=== PATIENT | female | born 1990 | race Caucasian/White ===

== ENCOUNTER 2016-10-05 18:49 | Emergency (ER) | payer OTHER, BC ==
[~2016-10-05 18:49] MED LIST: LEVOTHYROXIN0.088 MG PO; OMEPRAZOLE40 MG PO
[2016-10-05] MEDS ORDERED: NORCO 325 MG-51 TAB PO (19:06)
== END 2016-10-05 19:18 | disposition home or self-care (01) ==
LOC: ED 18:49
DX: S70.02XA Contusion of left hip, initial encounter (principal); M54.9 Dorsalgia, unspecified; V43.52XA Car driver injured in collision with other type car in traffic accident, initial encounter

== ENCOUNTER → 2016-12-05 | Outpatient (CLI) | payer BC ==
[2016-10-05 19:20] VITALS: BP 103/75
[~2016-12-05] MED LIST changes: +NORCO 325 MG-51 TAB PO
== END ==
LOC: RAD 08:16
DX: M54.16 Radiculopathy, lumbar region (principal); M54.6 Pain in thoracic spine; M51.24 Other intervertebral disc displacement, thoracic region

== ENCOUNTER 2017-01-15 10:30 | Outpatient (RCR) | payer BC ==
[2016-10-05 19:20] VITALS: BP 103/75
== END 2017-01-15 12:00 | disposition home or self-care (01) ==
LOC: PT 10:30
DX: M54.16 Radiculopathy, lumbar region (principal); M54.6 Pain in thoracic spine

== ENCOUNTER → 2018-01-13 | Outpatient (CLI) | payer BC ==
[2016-10-05 19:20] VITALS: BP 103/75
[2018-01-13 18:09] LABS: EOS # 0.3 (0.04-0.40); EOS % 5.2 % (1.0-5.0); HEMATOCRIT 37.6 % (37.0-47.0); HEMOGLOBIN 12.1 g/dL (12.5-16.0); LYMPH# 1.9 (1.50-4.00); MEAN CELL VOLUME 86 fl (78-100); MEAN CORPUSCULAR HEMOGLOBIN 28 pg (27-31); MEAN CORPUSCULAR HGB CONC 32 g/dL (33-37); MEAN PLATELET VOLUME 10.5 fl (7.4-10.4); MONO # 0.4 (0.20-0.80); NEU # 2.7 (1.40-6.50); PLATELET COUNT 168 K/mm3 (130-400); RED BLOOD COUNT 4.38 M/mm3 (4.10-5.30); RED CELL DISTRIBUTION WIDTH 13.8 % (11.5-14.5); WHITE BLOOD COUNT 5.3 K/mm3 (4.8-10.8)
[2018-01-13 19:18] LABS: ERYTHROCYTE SEDIMENTATION RATE 3 mm/hr (0-20)
[2018-01-13 19:58] LABS: URINE APPEARANCE CLEAR; URINE BILIRUBIN NEGATIVE (NEGATIVE); URINE BLOOD NEGATIVE (NEGATIVE); URINE COLOR YELLOW; URINE GLUCOSE NEGATIVE (NEGATIVE); URINE KETONE NEGATIVE (NEGATIVE); URINE NITRATE NEGATIVE (NEGATIVE); URINE PROTEIN(semi-quant) NEGATIVE (NEGATIVE); URINE UROBILINOGEN NORMAL (NORMAL)
[2018-01-13 19:59] LABS: URINE LEUKOCYTE ESTERASE TRACE (NEGATIVE); URINE WBC 0-1 /hpf (0-3)
[2018-01-13 20:26] LABS: ALBUMIN 4.4 g/dL (3.5-5.0); BUN/CREATININE RATIO 14.3 (6.0-26.0); CALCIUM 9.2 mg/dL (8.4-10.2); TOTAL BILIRUBIN 0.2 mg/dL (0.2-1.3); TOTAL PROTEIN 7.5 g/dL (6.3-8.2)
[2018-01-14 13:40] LABS: C-REACTIVE PROTEIN XXX
== END ==
LOC: RAD 17:35
PROVIDERS: Internal Medicine
DX: M79.672 Pain in left foot (principal); M79.671 Pain in right foot; M79.642 Pain in left hand; M79.641 Pain in right hand; M25.532 Pain in left wrist; M25.531 Pain in right wrist; R20.2 Paresthesia of skin; N91.2 Amenorrhea, unspecified

== ENCOUNTER → 2019-10-02 | Outpatient (CLI) | payer BC ==
[2016-10-05 19:20] VITALS: BP 103/75
[2019-10-02 08:29] LABS: EOS # 0.1 (0.04-0.40); EOS % 1.7 % (1.0-5.0); HEMATOCRIT 38.8 % (37.0-47.0); LYMPH# 1.2 (1.50-4.00); MEAN CELL VOLUME 87 fl (78-100); MEAN CORPUSCULAR HEMOGLOBIN 27 pg (27-31); MEAN CORPUSCULAR HGB CONC 31 g/dL (33-37); MONO # 0.4 (0.20-0.80); NEU # 2.3 (1.40-6.50); PLATELET COUNT 162 K/mm3 (130-400); RED BLOOD COUNT 4.44 M/mm3 (4.10-5.30); RED CELL DISTRIBUTION WIDTH 13.6 % (11.5-14.5)
[2019-10-02 08:40] LABS: ALBUMIN 4.4 g/dL (3.5-5.0)
[2019-10-02 08:41] LABS: CALCIUM 9.4 mg/dL (8.3-10.5)
[2019-10-02 08:43] LABS: TOTAL PROTEIN 7.2 g/dL (6.4-8.3)
[2019-10-02 08:45] LABS: TOTAL BILIRUBIN 0.6 mg/dL (0.2-1.2)
[2019-10-02 09:30] LABS: ERYTHROCYTE SEDIMENTATION RATE 8 mm/hr (0-20)
== END ==
LOC: LAB 08:18
PROVIDERS: Internal Medicine
DX: Z00.00 Encounter for general adult medical examination without abnormal findings (principal); R06.02 Shortness of breath

== ENCOUNTER → 2020-01-22 | Outpatient (CLI) | payer BC ==
[2016-10-05 19:20] VITALS: BP 103/75
== END ==
LOC: RAD 15:48
DX: M25.561 Pain in right knee (principal); M25.562 Pain in left knee

== ENCOUNTER 2020-02-26 13:00 | Outpatient (RCR) | payer BC ==
[2016-10-05 19:20] VITALS: BP 103/75
== END 2020-04-07 | disposition still patient (30) ==
LOC: PT
DX: M22.2X1 Patellofemoral disorders, right knee (principal); M22.2X2 Patellofemoral disorders, left knee; M25.571 Pain in right ankle and joints of right foot

== ENCOUNTER → 2020-02-26 | Outpatient (CLI) | payer BC ==
[2020-02-23 15:21] VITALS: BP 108/71
[~2020-02-26] MED LIST changes: +FLONASE ALLERG9.9 ML NS; +SYNTHROID0.125 MG PO
== END ==
LOC: RAD 11:30
DX: R06.00 Dyspnea, unspecified (principal); R51 Headache; Z83.6 Family history of other diseases of the respiratory system

== ENCOUNTER → 2020-03-24 | Outpatient (CLI) | payer BC ==
[2020-02-23 15:21] VITALS: BP 108/71
== END ==
LOC: CARDREHAB 07:59 → CARDLAB 09:05
DX: G47.8 Other sleep disorders (principal); G47.10 Hypersomnia, unspecified; R09.02 Hypoxemia
CPT/HCPCS: G0399

== ENCOUNTER → 2020-04-19 | Outpatient (CLI) | payer BC ==
[2020-02-23 15:21] VITALS: BP 108/71
== END ==
LOC: LAB 08:35
DX: J02.9 Acute pharyngitis, unspecified (principal); R09.81 Nasal congestion; Z20.828 Contact with and (suspected) exposure to other viral communicable diseases

== ENCOUNTER → 2020-05-03 | Outpatient (CLI) | payer BC ==
[2020-02-23 15:21] VITALS: BP 108/71
[2020-05-03 21:45] LABS: IMMUNOGLOBULIN E, TOTAL 68 IU/mL (0-100)
== END ==
LOC: LAB 10:36
PROVIDERS: Physician Assistant
DX: R06.02 Shortness of breath (principal)

== ENCOUNTER → 2020-05-06 | Outpatient (CLI) | payer BC ==
[2020-02-23 15:21] VITALS: BP 108/71
== END ==
LOC: AMSURD 07:57
DX: R00.0 Tachycardia, unspecified (principal)

== ENCOUNTER 2020-06-11 22:05 | Emergency (ER) | payer BC ==
[~2020-06-11] VITALS: Ht 165.1 cm; Wt 72.7 kg
[2020-06-11] MEDS ORDERED: IBU800 M1 PO (22:17)
[2020-06-11] MEDS ORDERED: PERCOCET 325 MG1 TA2 PO (22:17)
[2020-06-11] MEDS ORDERED: COLACE100 M1 PO (22:17)
[2020-06-12 00:39] VITALS: BP 96/60
== END 2020-06-12 00:39 | disposition home or self-care (01) ==
LOC: ED 22:05
DX: K62.89 Other specified diseases of anus and rectum (principal); K59.00 Constipation, unspecified; E03.9 Hypothyroidism, unspecified; Z90.710 Acquired absence of both cervix and uterus; Z79.1 Long term (current) use of non-steroidal anti-inflammatories (NSAID)
CPT/HCPCS: J1885; J2060; J3010

== ENCOUNTER → 2020-09-02 | Outpatient (CLI) | payer BC ==
[~2020-09-02] MED LIST changes: +COLACE100 M1 PO; +IBU800 M1 PO; +PERCOCET 325 MG1 TA2 PO
== END ==
LOC: RAD 08:24
DX: R10.13 Epigastric pain (principal); R10.11 Right upper quadrant pain

== ENCOUNTER → 2021-04-24 | Outpatient (CLI) | payer OTHER ==
[2021-04-24 08:10] LABS: BASO # 0.01 (0.02-0.10); EOS # 0.18 (0.04-0.40); EOS % 3.7 % (1.0-5.0); HEMATOCRIT 40.1 % (37.0-47.0); HEMOGLOBIN 13.1 g/dL (12.5-16.0); LYMPH# 1.63 (1.50-4.00); MEAN CELL VOLUME 91 fl (78-100); MEAN CORPUSCULAR HEMOGLOBIN 30 pg (27-31); MEAN CORPUSCULAR HGB CONC 33 g/dL (33-37); MEAN PLATELET VOLUME 9.9 fl (7.4-10.4); MONO # 0.35 (0.20-0.80); NEU # 2.74 (1.40-6.50); PLATELET COUNT 175 K/mm3 (130-400); RED BLOOD COUNT 4.39 M/mm3 (4.10-5.30); RED CELL DISTRIBUTION WIDTH 12.9 % (11.5-14.5); WHITE BLOOD COUNT 4.9 K/mm3 (4.8-10.8)
== END ==
LOC: LAB 07:56
PROVIDERS: Internal Medicine Gastroenterology
DX: D50.9 Iron deficiency anemia, unspecified (principal)

== ENCOUNTER → 2021-07-20 | Outpatient (CLI) | payer OTHER ==
[2021-07-20 19:39] LABS: BASO # 0.04 K/mm3 (0.02-0.10); EOS # 0.24 K/mm3 (0.04-0.40); EOS % 3.5 % (1.0-5.0); HEMATOCRIT 39.2 % (37.0-47.0); HEMOGLOBIN 12.6 g/dL (12.5-16.0); LYMPH# 2.28 K/mm3 (1.50-4.00); MEAN CELL VOLUME 90 fl (78-100); MEAN CORPUSCULAR HEMOGLOBIN 29 pg (27-31); MEAN CORPUSCULAR HGB CONC 32 g/dL (33-37); MONO # 0.48 K/mm3 (0.20-0.80); NEU # 3.78 K/mm3 (1.40-6.50); PLATELET COUNT 194 K/mm3 (130-400); RED BLOOD COUNT 4.35 M/mm3 (4.10-5.30); RED CELL DISTRIBUTION WIDTH 12.4 % (11.5-14.5); WHITE BLOOD COUNT 6.8 K/mm3 (4.8-10.8)
== END ==
LOC: LAB 18:27
PROVIDERS: Internal Medicine Gastroenterology
DX: D50.8 Other iron deficiency anemias (principal)

== ENCOUNTER → 2021-08-28 | Outpatient (CLI) | payer OTHER | LOC: LAB 08:45 | DX: E03.4 Atrophy of thyroid (acquired) (principal) ==

== ENCOUNTER → 2021-10-09 | Outpatient (CLI) | payer OTHER | LOC: LAB 09:16 | DX: N30.91 Cystitis, unspecified with hematuria (principal) ==

== ENCOUNTER → 2022-01-02 | Outpatient (RCR) | payer OTHER | END | disposition still patient (30) | LOC: PT | DX: M46.1 Sacroiliitis, not elsewhere classified (principal) ==

== ENCOUNTER 2022-01-04 16:00 | Outpatient (RCR) | payer OTHER | END 2022-02-01 | disposition still patient (30) | LOC: PT | DX: M46.1 Sacroiliitis, not elsewhere classified (principal) ==

== ENCOUNTER 2022-02-13 16:00 | Outpatient (RCR) | payer OTHER | END 2022-03-04 | disposition home or self-care (01) | LOC: PT | DX: M46.1 Sacroiliitis, not elsewhere classified (principal) ==

== ENCOUNTER → 2022-02-26 | Outpatient (CLI) | payer OTHER | LOC: LAB 16:37 | DX: M46.1 Sacroiliitis, not elsewhere classified (principal); M54.16 Radiculopathy, lumbar region; M65.9 Synovitis and tenosynovitis, unspecified ==

== ENCOUNTER → 2022-03-05 | Outpatient (CLI) | payer OTHER | LOC: RAD 17:02 | DX: M51.16 Intervertebral disc disorders with radiculopathy, lumbar region (principal); M51.27 Other intervertebral disc displacement, lumbosacral region ==

== ENCOUNTER 2022-03-06 07:56 | Outpatient (RCR) | payer OTHER | END 2022-04-04 | disposition home or self-care (01) | LOC: PT | DX: M46.1 Sacroiliitis, not elsewhere classified (principal) ==

== ENCOUNTER 2022-07-03 12:05 | Outpatient (RCR) | payer OTHER ==
[2022-06-29 11:31] VITALS: BP 111/75
[2022-06-29 12:33] VITALS: BP 117/74
[2022-06-30 11:00] VITALS: BP 111/75
[2022-06-30 12:00] VITALS: BP 110/76
[2022-07-01 11:48] VITALS: BP 116/75
[2022-07-01 11:50] VITALS: BP 116/75
[2022-07-01 12:12] VITALS: BP 123/77
[2022-07-02 11:15] VITALS: BP 117/74
[~2022-07-03] VITALS: Ht 165.1 cm; Wt 72.7 kg
[2022-07-03 12:35] VITALS: BP 111/23
== END 2022-07-04 | disposition home or self-care (01) ==
LOC: AMSURD
DX: Z51.81 Encounter for therapeutic drug level monitoring (principal)
CPT/HCPCS: J1756

== ENCOUNTER → 2022-08-30 | Outpatient (CLI) | payer OTHER ==
[~2022-08-30] VITALS: Ht 165.1 cm; Wt 72.7 kg
[2022-08-30 16:00] VITALS: BP 122/68
[2022-08-30 16:32] VITALS: BP 125/74
== END ==
LOC: AMSURD 15:58
DX: Z51.81 Encounter for therapeutic drug level monitoring (principal)
CPT/HCPCS: J1756

== ENCOUNTER → 2022-09-17 | Outpatient (CLI) | payer OTHER ==
[2022-09-17 22:07] LABS: T3 FREE 2.9 pg/mL (1.7-3.7)
[2022-09-20 23:41] LABS: VITAMIN A 52.2 mcg/dL (())
[2022-09-21 15:37] LABS: VITAMIN E 7.7 mg/L (())
== END ==
LOC: LAB 08:39
PROVIDERS: Internal Medicine
DX: M70.71 Other bursitis of hip, right hip (principal); K22.4 Dyskinesia of esophagus; T78.1XXA Other adverse food reactions, not elsewhere classified, initial encounter; K90.9 Intestinal malabsorption, unspecified; F90.0 Attention-deficit hyperactivity disorder, predominantly inattentive type; M79.7 Fibromyalgia; M54.50 Low back pain, unspecified; E03.4 Atrophy of thyroid (acquired); F41.1 Generalized anxiety disorder

== ENCOUNTER → 2022-10-20 | Outpatient (CLI) | payer OTHER | LOC: LAB 12:38 | DX: E61.1 Iron deficiency (principal) ==

== ENCOUNTER → 2023-07-02 | Outpatient (CLI) | payer OTHER | LOC: RAD 09:14 | DX: H47.11 Papilledema associated with increased intracranial pressure (principal) | CPT/HCPCS: A9575 ==

== ENCOUNTER 2023-07-29 15:57 | Outpatient (RCR) | payer OTHER ==
[2023-07-24 13:14] VITALS: BP 123/70
[2023-07-25 10:20] VITALS: BP 128/80
[~2023-07-29] VITALS: Ht 165.1 cm; Wt 89.5 kg
[2023-07-29 16:26] VITALS: BP 111/69
== END 2023-08-04 ==
LOC: AMSURD
DX: E61.1 Iron deficiency (principal)
CPT/HCPCS: J1756

== ENCOUNTER 2023-08-07 16:05 | Outpatient (RCR) | payer OTHER ==
[2023-08-06 10:35] VITALS: BP 119/77
[~2023-08-07] VITALS: Ht 165.1 cm; Wt 89.5 kg
[~2023-08-07 16:05] MED LIST changes: +Iron Sucrose 200 MG in NS 100 ML Over 15 minutes IV ONE
[2023-08-07] MEDS ORDERED: Iron Sucrose 200 MG in NS 100 ML Over 15 minutes IV ONE (16:15)
[2023-08-07 16:21] VITALS: BP 106/76
== END 2023-09-04 | disposition home or self-care (01) ==
LOC: AMSURD
DX: E61.1 Iron deficiency (principal)
CPT/HCPCS: J1756

== ENCOUNTER → 2023-08-20 | Outpatient (CLI) | payer OTHER ==
[~2023-08-20] MED LIST changes: -Iron Sucrose 200 MG in NS 100 ML Over 15 minutes IV ONE
== END ==
LOC: LAB 16:49
DX: E61.1 Iron deficiency (principal)

== ENCOUNTER → 2023-09-13 | Outpatient (CLI) | payer OTHER | LOC: RAD 07:39 | DX: R05.3 Chronic cough (principal) ==

== ENCOUNTER → 2024-02-18 | Outpatient (CLI) | payer OTHER ==
[2024-02-18 16:50] LABS: BASO # 0.02 K/mm3 (0.02-0.10); EOS % 3.1 % (1.0-5.0); HEMATOCRIT 40.9 % (37.0-47.0); HEMOGLOBIN 13.3 g/dL (12.5-16.0); LYMPH# 2.06 K/mm3 (1.50-4.00); MEAN CELL VOLUME 91 fl (78-100); MEAN CORPUSCULAR HEMOGLOBIN 30 pg (27-31); MEAN CORPUSCULAR HGB CONC 33 g/dL (33-37); MEAN PLATELET VOLUME 10.8 fl (7.4-10.4); NEU # 3.85 K/mm3 (1.40-6.50); PLATELET COUNT 198 K/mm3 (130-400); RED BLOOD COUNT 4.49 M/mm3 (4.10-5.30); RED CELL DISTRIBUTION WIDTH 12.3 % (11.5-14.5); WHITE BLOOD COUNT 6.5 K/mm3 (4.8-10.8)
[2024-02-19 17:39] LABS: FOLATE (FOLIC ACID) 9.3 ng/mL (2.0-20.0)
== END ==
LOC: LAB 16:37
PROVIDERS: Internal Medicine
DX: E61.1 Iron deficiency (principal); K90.9 Intestinal malabsorption, unspecified

== ENCOUNTER → 2024-05-22 | Outpatient (CLI) | payer OTHER ==
[2024-05-22 16:52] LABS: BASO # 0.03 K/mm3 (0.02-0.10); EOS # 0.33 K/mm3 (0.04-0.40); EOS % 4.2 % (1.0-5.0); HEMATOCRIT 41.9 % (37.0-47.0); HEMOGLOBIN 13.7 g/dL (12.5-16.0); LYMPH# 2.24 K/mm3 (1.50-4.00); MEAN CELL VOLUME 90 fl (78-100); MEAN CORPUSCULAR HEMOGLOBIN 30 pg (27-31); MEAN CORPUSCULAR HGB CONC 33 g/dL (33-37); MEAN PLATELET VOLUME 10.2 fl (7.4-10.4); MONO # 0.52 K/mm3 (0.20-0.80); NEU # 4.65 K/mm3 (1.40-6.50); PLATELET COUNT 193 K/mm3 (130-400); RED BLOOD COUNT 4.64 M/mm3 (4.10-5.30); RED CELL DISTRIBUTION WIDTH 12.5 % (11.5-14.5); WHITE BLOOD COUNT 7.8 K/mm3 (4.8-10.8)
== END ==
LOC: LAB 16:42
PROVIDERS: Internal Medicine
DX: E61.1 Iron deficiency (principal); R73.9 Hyperglycemia, unspecified

== ENCOUNTER → 2024-09-02 | Outpatient (CLI) | payer OTHER ==
[2024-09-02 11:27] LABS: BASO # 0.02 K/mm3 (0.02-0.10); EOS # 0.13 K/mm3 (0.04-0.40); EOS % 2.1 % (1.0-5.0); HEMATOCRIT 40.8 % (37.0-47.0); HEMOGLOBIN 13.4 g/dL (12.5-16.0); LYMPH# 1.51 K/mm3 (1.50-4.00); MEAN CELL VOLUME 91 fl (78-100); MEAN CORPUSCULAR HEMOGLOBIN 30 pg (27-31); MEAN CORPUSCULAR HGB CONC 33 g/dL (33-37); MEAN PLATELET VOLUME 10.5 fl (7.4-10.4); MONO # 0.38 K/mm3 (0.20-0.80); PLATELET COUNT 177 K/mm3 (130-400); RED BLOOD COUNT 4.48 M/mm3 (4.10-5.30); RED CELL DISTRIBUTION WIDTH 12.3 % (11.5-14.5); WHITE BLOOD COUNT 6.2 K/mm3 (4.8-10.8)
[2024-09-02 11:35] LABS: ALBUMIN 4.3 g/dL (3.5-5.0)
[2024-09-02 11:36] LABS: CALCIUM 9.3 mg/dL (8.3-10.5)
[2024-09-02 11:37] LABS: TOTAL PROTEIN 7.4 g/dL (6.4-8.3)
[2024-09-02 11:39] LABS: TOTAL BILIRUBIN 0.4 mg/dL (0.2-1.2)
[2024-09-02 11:44] LABS: MAGNESIUM 1.85 mg/dL (1.60-2.60)
== END ==
LOC: LAB 11:14
PROVIDERS: Internal Medicine
DX: E03.4 Atrophy of thyroid (acquired) (principal); E53.8 Deficiency of other specified B group vitamins; E61.1 Iron deficiency; K90.9 Intestinal malabsorption, unspecified; F41.8 Other specified anxiety disorders

== ENCOUNTER → 2024-09-30 | Outpatient (CLI) | payer OTHER | LOC: LAB 13:40 | DX: E80.21 Acute intermittent (hepatic) porphyria (principal) ==

== ENCOUNTER → 2024-10-15 | Outpatient (CLI) | payer OTHER | LOC: LAB 08:57 | DX: E80.20 Unspecified porphyria (principal) ==

== ENCOUNTER → 2024-10-19 | Outpatient (CLI) | payer OTHER | LOC: LAB 09:18 | DX: E80.20 Unspecified porphyria (principal) ==

== ENCOUNTER → 2024-11-18 | Outpatient (CLI) | payer OTHER ==
[2024-11-18 09:57] LABS: BASO # 0.01 K/mm3 (0.02-0.10); EOS # 0.22 K/mm3 (0.04-0.40); EOS % 4.3 % (1.0-5.0); HEMATOCRIT 40.6 % (37.0-47.0); HEMOGLOBIN 13.4 g/dL (12.5-16.0); LYMPH# 1.61 K/mm3 (1.50-4.00); MEAN CELL VOLUME 90 fl (78-100); MEAN CORPUSCULAR HEMOGLOBIN 30 pg (27-31); MEAN CORPUSCULAR HGB CONC 33 g/dL (33-37); MONO # 0.39 K/mm3 (0.20-0.80); NEU # 2.85 K/mm3 (1.40-6.50); PLATELET COUNT 170 K/mm3 (130-400); RED BLOOD COUNT 4.49 M/mm3 (4.10-5.30); RED CELL DISTRIBUTION WIDTH 12.2 % (11.5-14.5); WHITE BLOOD COUNT 5.1 K/mm3 (4.8-10.8)
== END ==
LOC: LAB 09:40
PROVIDERS: Internal Medicine
DX: E61.1 Iron deficiency (principal)